=== PATIENT | female | born 1980 | race Two or more races ===

== ENCOUNTER 2017-09-23 16:16 | Inpatient (IN) | payer OTHER ==
[~2017-09-23] VITALS: Ht 165.1 cm; Wt 76.2 kg
[2017-09-29] MEDS ORDERED: PRENATAL 19 TA1 EACH PO (17:26)
== END 2017-10-01 12:17 | DRG 775 ==
LOC: OB/GYN 09-29 16:21 → LDR 09-29 16:50 → OB/GYN 09-29 20:23 → LDR 10-18 16:14
PROC: 10E0XZZ Delivery of Products of Conception, External Approach (ICD-10-PCS; principal; 2017-09-29)
PROC: 0HQ9XZZ Repair Perineum Skin, External Approach (ICD-10-PCS; 2017-09-29)
PROC: 3E033VJ Introduction of Other Hormone into Peripheral Vein, Percutaneous Approach (ICD-10-PCS; 2017-09-29)
PROC: 4A1HXCZ Monitoring of Products of Conception, Cardiac Rate, External Approach (ICD-10-PCS; 2017-09-29)
DX: O70.0 First degree perineal laceration during delivery (principal); Z3A.37 37 weeks gestation of pregnancy; Z37.0 Single live birth; O09.523 Supervision of elderly multigravida, third trimester

== ENCOUNTER 2019-03-15 10:55 | Outpatient (CLI) | payer OTHER ==
[~2019-03-15 10:55] MED LIST: PRENATAL 19 TA1 EACH PO
== END 2019-03-15 12:04 | disposition home or self-care (01) ==
LOC: NST 10:55
DX: Z34.83 Encounter for supervision of other normal pregnancy, third trimester (principal)

== ENCOUNTER 2019-04-20 09:47 | Inpatient (IN) | payer OTHER ==
[~2019-04-20] VITALS: Ht 165.1 cm; Wt 72.6 kg
[2019-05-22] MEDS ORDERED: IRON325 MG PO (17:23)
== END 2019-05-24 11:18 | disposition home or self-care (01) | DRG 807 ==
LOC: SURG-SUITE 05-22 16:40 → LDR 05-22 16:40 → SURG-SUITE 05-22 19:27 → OB/GYN 06-01 13:00
PROVIDERS: ADMIT Obstetrics & Gynecology
PROC: 10E0XZZ Delivery of Products of Conception, External Approach (ICD-10-PCS; principal; 2019-05-22)
PROC: 0KQM0ZZ Repair Perineum Muscle, Open Approach (ICD-10-PCS; 2019-05-22)
PROC: 3E033VJ Introduction of Other Hormone into Peripheral Vein, Percutaneous Approach (ICD-10-PCS; 2019-05-22)
PROC: 4A1HXFZ Monitoring of Products of Conception, Cardiac Rhythm, External Approach (ICD-10-PCS; 2019-05-22)
DX: O70.1 Second degree perineal laceration during delivery (principal); Z37.0 Single live birth; Z3A.37 37 weeks gestation of pregnancy

== ENCOUNTER → 2019-05-03 | Outpatient (CLI) | payer OTHER | END | disposition home or self-care (01) | LOC: NST 13:24 | DX: Z34.83 Encounter for supervision of other normal pregnancy, third trimester (principal) ==

== ENCOUNTER 2021-08-06 06:07 | Day surgery (SDC) | payer OTHER ==
[~2021-08-06] VITALS: Ht 165.1 cm; Wt 66.2 kg
[~2021-08-06 06:07] MED LIST changes: +IRON325 MG PO
[2021-08-06] MEDS ORDERED: ULTRAM50 MG PO (07:59)
[2021-08-06] MEDS ORDERED: NEURONTIN300 MG PO (07:59)
[2021-08-06] MEDS ORDERED: TYLENOL ARTHRI650 MG PO (07:59)
[2021-08-06] MEDS ORDERED: MIRALAX17 GM PO (07:59)
== END 2021-08-06 17:20 | disposition home or self-care (01) ==
LOC: CIR.AMB 06:07
PROVIDERS: ATTEND Surgery
DX: K42.0 Umbilical hernia with obstruction, without gangrene (principal); Z20.822 Contact with and (suspected) exposure to COVID-19; K21.9 Gastro-esophageal reflux disease without esophagitis
CPT/HCPCS: 49587; C1781